=== PATIENT | male | born 1985 | race Caucasian/White ===

== ENCOUNTER → 2020-06-23 | Outpatient (CLI) | payer OTHER | LOC: US 13:50 | PROVIDERS: ATTEND Urology | DX: N50.819 Testicular pain, unspecified (principal); N43.3 Hydrocele, unspecified; G89.29 Other chronic pain | CPT/HCPCS: 76870; 93976 ==

== ENCOUNTER 2020-08-01 01:11 | Inpatient (IN) | payer OTHER ==
[~2020-08-01] VITALS: Ht 180.3 cm; Wt 81.6 kg
[2020-08-01] VITALS (14 sets, daily range): BP systolic 104–129; BP diastolic 66–90
[2020-08-01] MEDS ORDERED: KETOROLAC TROMETHAMINE 30 MG/ML VIAL IV STA (01:16)
[2020-08-01 01:39] LABS: BASOPHILS # (AUTO) 0.1 (0.0-0.1); BASOPHILS % 0.6 % (0.0-1.0); EOSINOPHILS # (AUTO) 0.3 (0.0-0.4); EOSINOPHILS % 2.2 % (0.0-6.0); HEMATOCRIT 49.5 % (38.2-49.6); HEMOGLOBIN 16.4 g/dL (14.0-18.0); LYMPHOCYTES # (AUTO) 3.5 (1.0-3.2); MEAN CORPUSCULAR HEMOGLOBIN 30.4 pg (28-32); MEAN CORPUSCULAR HGB CONC 33.1 g/dL (31-35); MEAN CORPUSCULAR VOLUME 91.7 fL (81-99); MONOCYTES # (AUTO) 1.3 (0.2-0.8); MONOCYTES % 10.5 % (4.4-11.3); NEUTROPHILS # (AUTO) 7.3 (2.1-6.9); NEUTROPHILS % 58.1 % (38.7-80.0); PLATELET COUNT 411 x10e3/uL (140-360); RED CELL DISTRIBUTION WIDTH 11.8 % (11.7-14.4)
[2020-08-01 02:01] LABS: ALANINE AMINOTRANSFERASE 38 IU/L (0-55); ALKALINE PHOSPHATASE 102 IU/L (40-150); ANION GAP 17.2 mmol/L (8-16); BLOOD UREA NITROGEN 14 mg/dL (7-26); BUN/CREATININE RATIO 16 (6-25); CALCIUM 9.1 mg/dL (8.4-10.2); CARBON DIOXIDE 25 mmol/L (22-29); CHLORIDE 102 mmol/L (98-107); CREATINE KINASE 351 IU/L (30-200); CREATININE, SERUM 0.87 mg/dL (0.72-1.25); EST GLOMERULAR FILTRATION RATE > 60 ML/MIN (60-); GLUCOSE 108 mg/dL (74-118); POTASSIUM 4.2 mmol/L (3.5-5.1); SODIUM 140 mmol/L (136-145)
[2020-08-01 02:30] LABS: INR 0.95; PARTIAL THROMBOPLASTIN TIME 30.6 seconds (23.8-35.5); PROTHROMBIN TIME 13.3 seconds (11.9-14.5)
[2020-08-01] MEDS ORDERED: HEPARIN 25,000 UNIT 900 UNIT in DEXTROSE 5% 250ML 250 ML IV SCH (02:30)
[2020-08-01] MEDS ORDERED: CLOPIDOGREL BISULFATE 75 MG TAB PO ONE (02:30)
[2020-08-01] MEDS ORDERED: MORPHINE SULFATE INJ 2 MG/ML SYR IV PRN (02:30)
[2020-08-01] MEDS ORDERED: ONDANSETRON HCL INJ 2MG/ML 2ML 2 MG/ML VIAL IV PRN (02:30)
[2020-08-01] MEDS ORDERED: HEPARIN SOD (PORCINE) 5,000 UNIT/ML VIAL IV ONE (02:30)
[2020-08-01] MEDS ORDERED: SODIUM CHLORIDE FLUSH 10 ML SYR INJ PRN (02:30)
[2020-08-01] MEDS ORDERED: HEPARIN 25,000 UNIT DRIP IV ONE (03:09)
[2020-08-01 04:17] LABS: CLARITY,URINE CLEAR (CLEAR); COLOR,URINE AMBER (YELLOW); KETONES,URINE NEGATIVE (NEGATIVE); LEUKOCYTE ESTERASE ,URINE NEGATIVE (NEGATIVE); NITRITE,URINE NEGATIVE (NEGATIVE); PROTEIN,URINE DIPSTICK TRACE (NEGATIVE)
[2020-08-01 04:18] LABS: AMPHETAMINES SCREEN,URINE NEGATIVE (NEGATIVE); BENZODIAZEPINES SCREEN,URINE NEGATIVE (NEGATIVE); PHENCYCLIDINE SCREEN,URINE NEGATIVE (NEGATIVE); URINE UROBILINOGEN 1 mg/dL (0.2 - 1)
[2020-08-01 04:23] LABS: BACTERIA,URINE FEW /HPF; EPITHELIAL CELLS,URINE RARE /LPF; MUCUS,URINE FEW (RARE); RBC,URINE 0-5 /HPF (0-5); WBC,URINE (MAN) 0-5 /HPF (0-5)
[2020-08-01 07:06] LABS: CREATINE KINASE MB 28.5 ng/mL (0-5.0)
[2020-08-01] MEDS: ASPIRIN 81 MG ENTERIC COATED PO SCH (07:55)
[2020-08-01] MEDS ORDERED: MIDAZOLAM HCL 2 MG/2 ML VIAL ONE ×3 (10:33→14:08)
[2020-08-01 10:34] LABS: INR 0.96; PROTHROMBIN TIME 13.4 seconds (11.9-14.5)
[2020-08-01] MEDS ORDERED: LIDOCAINE HCL 2% LOCAL 20 ML VIAL ONE (10:34)
[2020-08-01] MEDS ORDERED: FENTANYL CITRATE/PF 100MCG/2 ML INJ ONE ×2 (10:34→14:08)
[2020-08-01 10:35] LABS: PARTIAL THROMBOPLASTIN TIME 40.3 seconds (23.8-35.5)
[2020-08-01] MEDS ORDERED: SODIUM CHLORIDE 0.9% 1000ML 1,000 ML ONE (10:36)
[2020-08-01] MEDS ORDERED: IOPAMIDOL 370 MG/ML 200 ML INFUS..BTL INJ ONE ×2 (10:36→14:12)
[2020-08-01] MEDS ORDERED: HEPARIN SOD/SOD CHLORIDE 2,000 ML ONE (10:36)
[2020-08-01] MEDS: CLOPIDOGREL BISULFATE 75 MG TAB PO SCH (10:41)
[2020-08-01] MEDS: METOPROLOL SUCCINATE 50 MG TAB XL PO SCH (10:41)
[2020-08-01] MEDS: ATORVASTATIN 20 MG TAB PO SCH (10:41)
[2020-08-01 10:44] LABS: FERRITIN 362.47 ng/mL (21.81-274.66)
[2020-08-01 11:02] LABS: CREATINE KINASE MB 35.9 ng/mL (0-5.0)
[2020-08-01] MEDS ORDERED: METOPROLOL TARTRATE INJ 1 MG/ML VIAL ONE (13:20)
[2020-08-01] MEDS ORDERED: MORPHINE SULFATE INJ 4 MG/ML INJ 1ML ONE (14:46)
[2020-08-01] MEDS ORDERED: SODIUM CHLORIDE 0.9% 1000ML 1,000 ML IV SCH (15:30)
[2020-08-01 18:57] LABS: CREATINE KINASE MB 29.7 ng/mL (0-5.0)
[2020-08-01] MEDS: MORPHINE SULFATE INJ 4 MG/ML INJ 1ML IV PRN ×2 (19:48→23:54)
[2020-08-02] VITALS (13 sets, daily range): BP systolic 95–124; BP diastolic 67–88
[2020-08-02] MEDS: MORPHINE SULFATE INJ 4 MG/ML INJ 1ML IV PRN (05:13)
[2020-08-02 05:32] LABS: BASOPHILS # (AUTO) 0.1 (0.0-0.1); BASOPHILS % 0.5 % (0.0-1.0); EOSINOPHILS # (AUTO) 0.2 (0.0-0.4); EOSINOPHILS % 1.9 % (0.0-6.0); HEMATOCRIT 43.7 % (38.2-49.6); HEMOGLOBIN 14.5 g/dL (14.0-18.0); LYMPHOCYTES % 25.4 % (18.0-39.1); MEAN CORPUSCULAR HEMOGLOBIN 30.2 pg (28-32); MEAN CORPUSCULAR HGB CONC 33.2 g/dL (31-35); MONOCYTES # (AUTO) 1.5 (0.2-0.8); MONOCYTES % 12.4 % (4.4-11.3); NEUTROPHILS % 59.4 % (38.7-80.0); PLATELET COUNT 398 x10e3/uL (140-360); RED CELL DISTRIBUTION WIDTH 11.8 % (11.7-14.4)
[2020-08-02 05:52] LABS: ALANINE AMINOTRANSFERASE 29 IU/L (0-55); ALBUMIN 3.2 g/dL (3.5-5.0); ALBUMIN/GLOBULIN RATIO 0.7 (0.8-2.0); ALKALINE PHOSPHATASE 78 IU/L (40-150); ANION GAP 15.2 mmol/L (8-16); BLOOD UREA NITROGEN 13 mg/dL (7-26); BUN/CREATININE RATIO 16 (6-25); CALCIUM 8.9 mg/dL (8.4-10.2); CARBON DIOXIDE 24 mmol/L (22-29); CHLORIDE 103 mmol/L (98-107); CREATININE, SERUM 0.79 mg/dL (0.72-1.25); EST GLOMERULAR FILTRATION RATE > 60 ML/MIN (60-); GLUCOSE 91 mg/dL (74-118); POTASSIUM 4.2 mmol/L (3.5-5.1); SODIUM 138 mmol/L (136-145)
[2020-08-02] MEDS: CLOPIDOGREL BISULFATE 75 MG TAB PO SCH (08:14)
[2020-08-02] MEDS: METOPROLOL SUCCINATE 50 MG TAB XL PO SCH (08:14)
[2020-08-02] MEDS: ASPIRIN 81 MG ENTERIC COATED PO SCH (08:14)
[2020-08-02] MEDS: ISOSORBIDE MONONITRATE 30 MG TAB CR PO SCH (16:22)
[2020-08-02] MEDS: HYDROCODONE/APAP 5MG-325MG TAB PO PRN ×2 (16:23→22:32)
[2020-08-02] MEDS: ATORVASTATIN 20 MG TAB PO SCH (21:38)
[2020-08-03] VITALS (7 sets, daily range): BP systolic 94–109; BP diastolic 64–72
[2020-08-03] MEDS: HYDROCODONE/APAP 5MG-325MG TAB PO PRN (05:42)
[2020-08-03] MEDS: ASPIRIN 81 MG ENTERIC COATED PO SCH (08:32)
[2020-08-03] MEDS: ISOSORBIDE MONONITRATE 30 MG TAB CR PO SCH (08:33)
[2020-08-03] MEDS: CLOPIDOGREL BISULFATE 75 MG TAB PO SCH (08:33)
[2020-08-03] MEDS ORDERED: LISINOPRIL 2.5 MG TAB PO SCH (09:00)
[2020-08-03] MEDS ORDERED: METOPROLOL SUCCINATE 50 MG TAB XL PO SCH (09:00)
[2020-08-03] MEDS ORDERED: LISINOPRIL2.5 MG PO (13:38)
[2020-08-03] MEDS ORDERED: METOPROLOL SUCC25 MG PO (13:45)
[2020-08-03] MEDS ORDERED: ATORVASTATIN CA20 MG PO (13:46)
[2020-08-03] MEDS ORDERED: PLAVIX75 MG PO (13:46)
[2020-08-03] MEDS ORDERED: ISOSORBIDE MONO10 MG (13:47)
== END 2020-08-03 14:26 | disposition home or self-care (01) | DRG 246 ==
LOC: ER 01:48 → ERHOLD 02:33 → IMCU 16:49
PROVIDERS: ADMIT Internal Medicine; ATTEND Internal Medicine
PROC: 027237Z Dilation of Coronary Artery, Three Arteries with Four or More Drug-eluting Intraluminal Devices, Percutaneous Approach (ICD-10-PCS; principal; 2020-08-01)
PROC: 4A023N7 Measurement of Cardiac Sampling and Pressure, Left Heart, Percutaneous Approach (ICD-10-PCS; 2020-08-01)
PROC: B2111ZZ Fluoroscopy of Multiple Coronary Arteries using Low Osmolar Contrast (ICD-10-PCS; 2020-08-01)
PROC: B2151ZZ Fluoroscopy of Left Heart using Low Osmolar Contrast (ICD-10-PCS; 2020-08-01)
DX: I21.4 Non-ST elevation (NSTEMI) myocardial infarction (principal); I50.21 Acute systolic (congestive) heart failure; E78.5 Hyperlipidemia, unspecified; I10 Essential (primary) hypertension; I25.10 Atherosclerotic heart disease of native coronary artery without angina pectoris; N52.9 Male erectile dysfunction, unspecified; R94.5 Abnormal results of liver function studies; I11.0 Hypertensive heart disease with heart failure; Z20.822 Contact with and (suspected) exposure to COVID-19
CPT/HCPCS: 36415; 71045; 76705; 76937; 80053; 80061; 80307; 81001; 82390; 82550; 82553; 82728; 83540; 84484; 85025; 85347; 85379; 85610; 85730; 86255; 92928; 92929; 93005; 93306; 93458; 99152; 99284; C1725; C1769; C1874; C1876; C1887; C1894; J1644; J1885; J2001; J2250; J2270; J3010; J7030; Q9967; U0002